=== PATIENT | female | born 2000 | race Caucasian/White ===

== ENCOUNTER 2021-10-19 13:20 | Emergency (ER) | payer OTHER ==
[~2021-10-19] VITALS: Ht 160 cm; Wt 95.3 kg
[2021-10-19 13:25] VITALS: BP_SYST 135
--- NOTE | 2021-10-19 13:30 | NUR ---
ER DR. GARCIA EXAMINING PT
--- NOTE | 2021-10-19 13:37 | NUR ---
Patient triaged and placed in waiting room. VSS and patient appears in no acute distress at this time. Accompanied by FATHER, awaiting available bed, and MD notified of need for MSE.
[2021-10-19] MEDS ORDERED: IBUP-1971 PO (14:52)
[2021-10-19] MEDS ORDERED: SOM350 PO (14:52)
[2021-10-19 15:34] VITALS: BP_SYST 132
--- NOTE | 2021-10-19 15:36 | NUR ---
Patient given written and verbal discharge instructions and verbalizes understanding. ER MD discussed with patient the results and treatment provided. Patient in stable condition. ID arm band removed. Rx of IBUPROFEN AND SOMA given. Patient educated on pain management and to follow up with PMD. Pain Scale 0/10. Opportunity for questions provided and answered. Medication side effect fact sheet provided.
== END 2021-10-19 15:36 | disposition home or self-care (01) ==
LOC: SED 13:20
DX: S80.02XA Contusion of left knee, initial encounter (principal); S50.12XA Contusion of left forearm, initial encounter; S40.012A Contusion of left shoulder, initial encounter; S60.212A Contusion of left wrist, initial encounter; V43.52XA Car driver injured in collision with other type car in traffic accident, initial encounter; Y93.89 Activity, other specified; Y92.89 Other specified places as the place of occurrence of the external cause; Y99.8 Other external cause status
CPT/HCPCS: 73030; 73564; 81025; 99284